=== PATIENT | male | born 1955 | race Caucasian/White ===

== ENCOUNTER 2018-12-11 13:03 | Inpatient (IN) | payer OTHER ==
[~2018-12-11] VITALS: Ht 182.9 cm; Wt 84.5 kg
[~2018-12-11 13:03] MED LIST: AMITRIPTYLINE H50 M2 PO; ASPIR 8181 MG PO; ASPIRIN325 PO; ATORVASTATIN CA80 MG PO; CARVEDILOL25 MG PO; FINASTERIDE5 MG PO; FISH OIL 1,2001 EAC4 PO; GABAPENTIN800 M1 PO; HYDRALAZINE 2525 M1; IMDUR 30 MG TAB30 M1 PO; Isosorbide; LANTUS100 UNIT/M SUBQ; NIACIN 500 MG500 M1 PO; NOVOLOG100 UNIT/M SUBQ; ONE-A-DAY MEN'1 EAC2 PO; TAMSULOSIN HCL0.4 MG PO
[2018-12-11] MEDS ORDERED: AMLODIPINE BESY10 MG PO (14:09)
[2018-12-11] MEDS ORDERED: ASPIRIN325 PO (14:10)
[2018-12-11] MEDS ORDERED: ASPIR 8181 MG PO (14:11)
[2018-12-11] MEDS ORDERED: COLACE100 MG PO (14:17)
[2018-12-11] MEDS ORDERED: SENNA8.6 MG PO (14:18)
[2018-12-11] MEDS ORDERED: REMERON15 MG PO (14:19)
[2018-12-11] MEDS ORDERED: NITROGLYCERIN0.4 MG SUBLING (14:20)
[2018-12-11] MEDS ORDERED: MIRALAX17 GM PO (14:20)
[2018-12-11] MEDS ORDERED: RENAL VITAMIN0.8 MG PO (14:21)
[2018-12-11] MEDS ORDERED: COUMADIN 2 MG TA2 M1 PO ×2 (14:22→14:23)
[2018-12-11] MEDS ORDERED: RESPIMAT INH (14:24)
[2018-12-11 16:00] VITALS: BP 146/68
--- NOTE | 2018-12-11 18:29 | NUR ---
ASSUMMED CARE OF PT AT 1530 ON ARRIVAL TO UNIT FROM [facility], PT ALERT, CONFUSED, ANSWERS SIMPLE QUESTIONS, PT TRANSFERRED WITH SBA GB FROM WHEELCHAIR INTO BED, PT ORIENTED TO ROOM, RETURN DEMONSTRATION DONE OF HOW TO USE CALL LIGHT, AT 1600 PT AMBULATED OUT INTO HALLWAY, HAD PLACED HIS SHOES ON HIMSELF AND GRABBED BELONGING AND WALKING OUT INTO GOLDMAN STATING I WANT TO GO HOME, PT RETURNED TO ROOM AND REORIENTED, AT 1700 DURING HOURLY ROUNDING PT ASLEEP, ATTEMPTED TO WAKE PT BUT PT STATED LEAVE ME ALONE, AT 1730 ATTEMPTED TO WAKE PT TO EAT AND WHEN ASKED IF HE WANTED TO EAT AFTER SEVERAL ATTEMPTS PT SAID NO, PT LAYING WITH EYES CLOSED AND DOES NOT ANSWER ANY FURTHER QUESTIONS, REHAB PHYSICIAN HERE AND AWARE OF SITUATION, DR JACKSON HERE AND ASSESSED PT, PT TO TRANSFER TO TELE, VSS, ALARM SOUNDING AND PT STANDING AT SIDE OF BED AND ATTEMPTING TO WALK INTO BATHROOM, PT PAJAMA PANTS WET, ATTEMPTING TO CHANGE WET CLOTHES BUT PT BELLIGERENT AND DOES NOT WANT CLOTHES CHANGED, WITH HELP OF DID GET CLOTHES CHANGED, REPORT CALLED TO TELE NURSE, PT SENT TO CT SCAN PER BED AND THEN DISCHARGED TO TELE.
== END 2018-12-11 18:52 | disposition short-term general hospital (02) | DRG 65 ==
LOC: M.REH 13:03
PROVIDERS: ADMIT Physical Medicine & Rehabilitation
DX: I61.1 Nontraumatic intracerebral hemorrhage in hemisphere, cortical (principal); N39.0 Urinary tract infection, site not specified; G93.40 Encephalopathy, unspecified; B96.5 Pseudomonas (aeruginosa) (mallei) (pseudomallei) as the cause of diseases classified elsewhere; R41.0 Disorientation, unspecified; N18.9 Chronic kidney disease, unspecified; E11.22 Type 2 diabetes mellitus with diabetic chronic kidney disease; I12.9 Hypertensive chronic kidney disease with stage 1 through stage 4 chronic kidney disease, or unspecified chronic kidney disease; I25.10 Atherosclerotic heart disease of native coronary artery without angina pectoris; I48.91 Unspecified atrial fibrillation; Z79.899 Other long term (current) drug therapy; Z95.1 Presence of aortocoronary bypass graft; Z79.4 Long term (current) use of insulin; Z79.01 Long term (current) use of anticoagulants

== ENCOUNTER 2018-12-11 18:45 | Inpatient (IN) | payer OTHER ==
[~2018-12-11] VITALS: Ht 182.9 cm; Wt 83.7 kg
[~2018-12-11 18:45] MED LIST changes: +AMLODIPINE BESY10 MG PO; +COLACE100 MG PO; +COUMADIN 2 MG TA2 M1 PO; +MIRALAX17 GM PO; +NITROGLYCERIN0.4 MG SUBLING; +REMERON15 MG PO; +RENAL VITAMIN0.8 MG PO; +RESPIMAT INH; +SENNA8.6 MG PO
[2018-12-11 19:10] VITALS: BP 130/52
[2018-12-11 20:10] VITALS: BP 148/60
[2018-12-11 20:33] LABS: ABSOLUTE BASOPHILS 0.1 thou/uL (0.0-0.2); ABSOLUTE EOSINOPHILS 0.4 thou/uL (0.0-0.7); ABSOLUTE LYMPHOCYTES 1.6 thou/uL (0.8-5.3); ABSOLUTE MONOCYTES 0.6 thou/uL (0.0-1.2); ABSOLUTE NEUTROPHILS 5.1 thou/uL (1.6-8.1); BASOPHILS 0.7 %; EOSINOPHILS 4.7 %; HEMATOCRIT 30.5 % (42.0-52.0); HEMOGLOBIN 10.4 gm/dL (14.0-18.0); LYMPHOCYTES 20.6 %; MCHC 34.1 g/dL (28.0-37.0); MCV 90.9 fL (80.0-100.0); MONOCYTES 7.8 %; NUCLEATED RBCS 0 /100WBC; PLATELET COUNT* 184 thou/uL (150-400); POLYS 66.2 %; RBC 3.35 mil/uL (4.50-6.00); RDW-CV 16.2 % (10.5-14.5); WBC 7.7 thou/uL (4.0-11.0)
[2018-12-11 20:40] LABS: INR 2.5; PROTIME 25.3 Seconds (9.20-11.50)
[2018-12-11 20:41] LABS: ANION GAP 9 mmol/L (7-16); BUN 47 mg/dL (7-18); CALCIUM 10.3 mg/dL (8.5-10.1); CHLORIDE 110 mmol/L (98-107); CO2 24 mmol/L (21-32); CREATININE 3.5 mg/dL (0.6-1.3); GLUCOSE 168 mg/dL (70-99); POTASSIUM 4.7 mmol/L (3.5-5.1); SODIUM 143 mmol/L (136-145)
[2018-12-11 20:45] LABS: ALBUMIN 2.8 g/dL (3.4-5.0); ALKALINE PHOSPHATASE 105 U/L (46-116); AMMONIA < 10 umol/L (11-32); MAGNESIUM 2.1 mg/dL (1.8-2.4); SGOT 17 U/L (15-37); SGPT 23 U/L (30-65); TOTAL BILIRUBIN 0.4 mg/dL (<0.1-1.0); TOTAL PROTEIN 6.1 g/dL (6.4-8.2)
[2018-12-11 23:40] LABS: URINE BILIRUBIN NEGATIVE (Negative); URINE BLOOD TRACE (Negative); URINE CLARITY CLEAR; URINE COLOR YELLOW; URINE GLUCOSE-RANDOM TRACE (Negative); URINE KETONES NEGATIVE (Negative); URINE LEUKOCYTES-REFLEX NEGATIVE (Negative); URINE NITRITE-REFLEX NEGATIVE (Negative); URINE PROTEIN 3+ (Negative); URINE SPECIFIC GRAVITY 1.025 (1.005-1.030); URINE UROBILINOGEN 0.2 E.U./dl (0.2-1.0)
[2018-12-11 23:46] VITALS: BP 156/66
[2018-12-11 23:54] LABS: SQUAMOUS 0-3 Few /LPF (0-3); URINE WBC-REFLEX None Seen /HPF (0-5)
[2018-12-11 23:55] LABS: AMORPHOUS URATES Moderate /LPF (None Seen); FINE GRANULAR CASTS 0-3 Few /LPF (None Seen); HYALINE CASTS 0-3 Few /LPF (None Seen); MUCUS 4-6 Moderate strn/LPF (None Seen); URINE RBC 3-10 Few /HPF (0-2)
[2018-12-12 04:00] VITALS: BP 135/56
[2018-12-12 04:41] LABS: ABSOLUTE BASOPHILS 0.1 thou/uL (0.0-0.2); ABSOLUTE EOSINOPHILS 0.4 thou/uL (0.0-0.7); ABSOLUTE LYMPHOCYTES 1.7 thou/uL (0.8-5.3); ABSOLUTE MONOCYTES 0.6 thou/uL (0.0-1.2); BASOPHILS 0.7 %; EOSINOPHILS 5.4 %; HEMOGLOBIN 10.7 gm/dL (14.0-18.0); LYMPHOCYTES 22.1 %; MCH 30.2 pg (26.0-34.0); MCHC 33.3 g/dL (28.0-37.0); MCV 90.6 fL (80.0-100.0); MONOCYTES 7.9 %; MPV 7.8 fl. (7.2-11.1); NUCLEATED RBCS 0 /100WBC; PLATELET COUNT* 182 thou/uL (150-400); POLYS 63.9 %; RBC 3.54 mil/uL (4.50-6.00); RDW-CV 16.3 % (10.5-14.5); WBC 7.8 thou/uL (4.0-11.0)
[2018-12-12 05:09] LABS: CALCIUM 10.3 mg/dL (8.5-10.1); CREATININE 3.4 mg/dL (0.6-1.3); PHOSPHORUS* 3.7 mg/dL (2.5-4.9); POTASSIUM 4.4 mmol/L (3.5-5.1)
--- NOTE | 2018-12-12 05:46 | NUR ---
PT CARE ASSUMED AT 1930. SAT MAINTAINED IN RA. PT IS CONFUSED AND IMPULSIVE. TRIES TO GET OUT OF THE BED, EDUCATED ON USING THE CALL LIGHT NEEDS REINFORCEMENT. CALL LIGHT WITHIN REACH AND BED IN LOW POSITION. DENIES PAIN AND SOB. HOURLY ROUNDING DONE FOR PT SAFETY.
[2018-12-12 07:59] VITALS: BP 162/77
--- NOTE | 2018-12-12 08:45 | NUR ---
RECIEVED REPORT FROM JOSÉ ANTONIO AND ASSUMED CARE OF PT @ 8656.PT IS ALERT TO SELF AND CONFUSED.VSS, TRACING SR ON THE MONITOR.IV PATENT AND SALINE LOCKED.PT IS CALM AND COOPERATIVE THIS MORNING WITH NO C/O PAIN.PT LEFT RESTING IN BED WITH CALL LIGHT AND FALL PRECAUTIONS IN PLACE.WILL CONTINUE TO MONITOR.
[2018-12-12 11:30] VITALS: BP 142/70
[2018-12-12 12:31] LABS: INR 1.9; PROTIME 19.9 Seconds (9.20-11.50)
--- NOTE | 2018-12-12 13:45 | NUR ---
Pt unable to be aroused, will attempt to assess later
[2018-12-12 15:56] VITALS: BP 133/59
--- NOTE | 2018-12-12 17:42 | NUR ---
VSS.PT WAS ALERT THIS MORNING WITH AT BEDSIDE.PT SAT IN CHAIR AND ATE BREAKFAST.PT SHOWERED IN BIG SHOWER WITH .THIS AFTERNOON PT WAS MORE LETHARGIC AND WOULD NOT RESPOND TO NURSE FOR MEDICATIONS.PT SAT AT EDGE OF BED WITH PHYSICAL THERAPY BUT WOULD NOT COOPERATE TO STAND OR OPEN EYES. SOON RETURNED THE PT WOKE UP AND GOT IN CHAIR AND ATE DINNER.CARDIAC MONITORING IN PLACE WITH NO CHANGES.NO C/O PAIN.PT RIPPED OUT IV THIS AM AND CURRENTLY HAS NO IV ACCESS.DR JACKSON IS AWARE.RUST COMPLETED THIS AM WITH A SCORE OF 3.CXR COMPLETED TODAY.PT AND INFORMED OF PLAN OF CARE AND COMMUNICATES UNDERSTANDING.PT AMBULATED IN ROOM WITH AND WALKER.HOURLY ROUNDING COMPLETED FOR PT SAFETY.CALL LIGHT AND FALL PRECAUTIONS IN PLACE.WILL CONTINUE TO MONITOR FOR DURATION OF SHIFT.
[2018-12-12 20:10] VITALS: BP 126/50
[2018-12-13] VITALS (7 sets, daily range): BP systolic 124–137; BP diastolic 45–63
[2018-12-13 04:42] LABS: ABSOLUTE EOSINOPHILS 0.3 thou/uL (0.0-0.7); ABSOLUTE LYMPHOCYTES 1.6 thou/uL (0.8-5.3); ABSOLUTE MONOCYTES 0.6 thou/uL (0.0-1.2); BASOPHILS 0.6 %; EOSINOPHILS 4.1 %; HEMATOCRIT 31.9 % (42.0-52.0); HEMOGLOBIN 10.7 gm/dL (14.0-18.0); LYMPHOCYTES 21.2 %; MCH 30.8 pg (26.0-34.0); MCHC 33.6 g/dL (28.0-37.0); MCV 91.6 fL (80.0-100.0); MONOCYTES 7.6 %; NUCLEATED RBCS 0 /100WBC; PLATELET COUNT* 185 thou/uL (150-400); POLYS 66.5 %; RBC 3.48 mil/uL (4.50-6.00); RDW-CV 16.6 % (10.5-14.5); WBC 7.5 thou/uL (4.0-11.0)
[2018-12-13 04:50] LABS: INR 1.7; PROTIME 16.9 Seconds (9.20-11.50)
[2018-12-13 04:55] LABS: CALCIUM 10.2 mg/dL (8.5-10.1); CREATININE 3.7 mg/dL (0.6-1.3); POTASSIUM 4.9 mmol/L (3.5-5.1)
--- NOTE | 2018-12-13 08:17 | NUR ---
PT CARE ASSUMED AT 1930. SAT MAINTAINED IN RA. CALL LIGHT WITHIN REACH AND BED IN LOW POSITION. PT IS IMPULSIVE, TRIES TO PULL HIS CATHETER OUT, DR BANKS, MEDICATION GIVEN PER EMAR. HOURLY ROUNDING DONE FOR PT SAFETY.
--- NOTE | 2018-12-13 10:00 | NUR ---
RECEIVED REPORT AND ASSUMED CARE OF PT AT 0730.PT IS ALERT AND ORIENTED TO SELF ONLY.LOOKS SLEEPY.SITTING ON THE RECLINER.TRACING SB ON THE MONITOR.UP WITH ASSIST WITH WALKER.NO COMPLAINTS OF PAIN .REDNESS ON THE BOTTOM AREA.CREAM APPLIED AND PT ENCOURAGED TO SLEEP ON LATERAL POSITION.ASSISTANCE PROVIDED ON FEEDING.NIH SCALE ASSESED.CALL LIGHT AND FALL PRECAUTIONS IN PLACE.WILL CONTINUE TO MONITOR.
[2018-12-13 11:57] LABS: ABSOLUTE BASOPHILS 0.1 thou/uL (0.0-0.2); ABSOLUTE EOSINOPHILS 0.3 thou/uL (0.0-0.7); ABSOLUTE LYMPHOCYTES 1.4 thou/uL (0.8-5.3); ABSOLUTE MONOCYTES 0.6 thou/uL (0.0-1.2); BASOPHILS 0.7 %; EOSINOPHILS 3.2 %; HEMOGLOBIN 10.6 gm/dL (14.0-18.0); MCH 30.6 pg (26.0-34.0); MCHC 33.3 g/dL (28.0-37.0); MCV 91.9 fL (80.0-100.0); MONOCYTES 6.7 %; MPV 7.7 fl. (7.2-11.1); NUCLEATED RBCS 0 /100WBC; PLATELET COUNT* 180 thou/uL (150-400); POLYS 72.4 %; RBC 3.48 mil/uL (4.50-6.00); RDW-CV 16.6 % (10.5-14.5); WBC 8.3 thou/uL (4.0-11.0)
[2018-12-13 12:05] LABS: CALCIUM 9.9 mg/dL (8.5-10.1); CREATININE 3.9 mg/dL (0.6-1.3); POTASSIUM 4.9 mmol/L (3.5-5.1)
--- NOTE | 2018-12-13 17:02 | NUR ---
VSS.PT IS A/OX1-2.TRACING SR ON THE MONITOR.UP WITH ASSIST.ON RA.IV PATENT AND SALINE LOCKED.PT IS DROWSY AND SLEEPY ALL DAY.NO COMPLAINTS OF PAIN .PT SEEN BY OT AND PT ,MOBILIZED TO RECLINER AND BED FREQUENTLY.REDNESS ON THE BOTTOM AREA,PT KEPT ON THE SIDE LATERAL POSITION AND BARRIER CREAM APPLIED.PT ENCOURAGED TO EAT.CALL LIGHT AND FALL PRECAUTIONS IN PLACE.WILL CONTINUE TO MONITOR
[2018-12-14 04:00] VITALS: BP 109/48
[2018-12-14 05:01] LABS: INR 1.6; PROTIME 16.7 Seconds (9.20-11.50)
--- NOTE | 2018-12-14 06:08 | NUR ---
PT CARE ASSUMED AT 1930. SAT MAINTAINED IN RA. PT IS CONFUSED. CALL LIGHT WITHIN REACH AND BED IN LOW POSITION. DENIES PAIN AND SOB. HOURLY ROUNDING DONE FOR PT SAFETY.
[2018-12-14 08:28] VITALS: BP 134/59
--- NOTE | 2018-12-14 10:30 | NUR ---
RECEIVED REPORT AND ASSUMED CARE OF PT AT 0735.PT IS A/OX1-2.LOOKS MUCH BETTER THAN YESTERDAY.COMMUNICATES LITTLE BIT.CONFUSED .TRACING SR PVCS ON THE MONITOR.UP WITH ASSIST WITH WALKER.MOBILIZED TO CHAIR AND HALLWAY.BARRIER CREAM APPLIED ON THE BOTTOM AREA.PT SLEPT GOOD LAST NIGHT .HE IS AWAKE THIS MORNING.NO COMPLAINTS OF PAIN.CALL LIGHT AND FALL PRECAUTIONS IN PLACE.WILL CONTINUE TO MONITOR.
[2018-12-14 12:28] VITALS: BP 127/50
[2018-12-14 15:36] VITALS: BP 145/58
--- NOTE | 2018-12-14 17:59 | NUR ---
VSS.PT IS ALERT BUT ORIENTED TO SELF.CONFUSED.TRACING SB-SR ON THE MONITOR.MCF[place]ANE PATENT AND SECURED.PT MOBILIZED TO CHAIR AND IN THE HALLWAY.UP WITH ASSIST.PT REMAINS SLEEPY THIS AFTERNOON FOR MOST OF THE TIME.POSSIBLE DISCHARGE TOMORROW PER DOCTOR.CALL LIGHT ND FALL PRECAUTIONS IN PLACE.WILL CONTINUE TO MONITOR.
[2018-12-14 19:30] VITALS: BP 127/62
[2018-12-15] VITALS: BP 139/57
--- NOTE | 2018-12-15 03:58 | NUR ---
RECIEVED REPORT AND ASSUMED CARE AT 1900. PULVERIZER IN PLACE. VITAL SIGNS STABLE. PT IS UP WITH ASSIST X 1. PT DENIED ANY PAIN AT THIS TIME. ASSESSMENT COMPLETED. BED LOCKED, ALARM ON AND CALL LIGHT WITHIN REACH. FALL PRECAUTIONS IN PLACE. HOURLY ROUNDING DONE AND ALL NEEDS MET. NURSING WILL CONTINUE TO MONITOR.
[2018-12-15 04:00] VITALS: BP 113/41
[2018-12-15 05:03] LABS: HEMATOCRIT 28.2 % (42.0-52.0); HEMOGLOBIN 9.6 gm/dL (14.0-18.0); MCH 30.9 pg (26.0-34.0); MCHC 33.9 g/dL (28.0-37.0); MCV 91.1 fL (80.0-100.0); MPV 8.1 fl. (7.2-11.1); RBC 3.09 mil/uL (4.50-6.00); RDW-CV 16.5 % (10.5-14.5); WBC 7.6 thou/uL (4.0-11.0)
[2018-12-15 05:17] LABS: INR 1.6
[2018-12-15 05:34] LABS: CALCIUM 9.8 mg/dL (8.5-10.1); CREATININE 3.8 mg/dL (0.6-1.3); MAGNESIUM 1.9 mg/dL (1.8-2.4); POTASSIUM 4.4 mmol/L (3.5-5.1)
--- NOTE | 2018-12-15 10:42 | NUR ---
ASSUMED PT CARE AT 0730, FULL ASSESMENT DONE CHARTED. PT A/O X3, FORGETFUL, DOSE STATE HE IS CONFUSED. PT THINKS HE IS [place], BUT STATES HE IS IN [place], ABLE TO ANSER ALL OTHER ORIENTATION QUESTIONS APPROPRIALTY. PT HAS MCF[place]ANE DEPENDENT TO DRAINAGE. PT SITTING IN CHAIR, ALARM ON. FALL PRECAUTIONS IN PLACE. RA, VSS, SB/1ST AVB ON THE MONITOR. WILL CONTINUE TO MONITOR.
--- NOTE | 2018-12-15 11:02 | NUR ---
Pt is A&O. Pt was on [facility] acute rehab unit, prior to admitting to the hospital, Pt hopes to return to acute rehab at [facility]. Normally Pt resides at home with his . Pt has a walker and cane that he can use for mobility. No hx of HH. Hx of skilled at [facility]. CM left message for rehabilitation tech to determine if they can accept Pt back at [facility]. Following.
[2018-12-15 11:57] VITALS: BP 134/58
[2018-12-15 15:50] VITALS: BP 134/58
[2018-12-15] MEDS ORDERED: ZOLOFT 50 MG TA50 M1 PO (15:58)
[2018-12-15] MEDS ORDERED: MELATONIN5 M1 PO (15:59)
[2018-12-15] MEDS ORDERED: PROVIGIL 200 M200 MG PO (16:00)
--- NOTE | 2018-12-15 16:57 | NUR ---
RECIEVED CONFIRMATION FOR PT TO DC TO REHAB. DISCHARGE ORDERS RECIEVED. PTS INFOMED OF THE CHANGE. REVIEWED MED CHANGES WITH , SHE VERBALIZED UNDERSTANDING. PT LEFT UNIT AT APPROX 1655
== END 2018-12-15 16:55 | DRG 64 ==
LOC: M.2W 18:45
PROVIDERS: Internal Medicine; ADMIT Family Medicine
DX: I63.89 Other cerebral infarction (principal); G93.41 Metabolic encephalopathy; I50.43 Acute on chronic combined systolic (congestive) and diastolic (congestive) heart failure; I13.0 Hypertensive heart and chronic kidney disease with heart failure and stage 1 through stage 4 chronic kidney disease, or unspecified chronic kidney disease; N18.4 Chronic kidney disease, stage 4 (severe); N25.81 Secondary hyperparathyroidism of renal origin; I25.10 Atherosclerotic heart disease of native coronary artery without angina pectoris; E11.22 Type 2 diabetes mellitus with diabetic chronic kidney disease; E11.40 Type 2 diabetes mellitus with diabetic neuropathy, unspecified; E11.51 Type 2 diabetes mellitus with diabetic peripheral angiopathy without gangrene; E78.5 Hyperlipidemia, unspecified; I48.91 Unspecified atrial fibrillation; N40.1 Benign prostatic hyperplasia with lower urinary tract symptoms; R33.8 Other retention of urine; H90.3 Sensorineural hearing loss, bilateral; Z95.1 Presence of aortocoronary bypass graft; Z79.01 Long term (current) use of anticoagulants; Z79.4 Long term (current) use of insulin; Z79.82 Long term (current) use of aspirin; Z79.899 Other long term (current) drug therapy

== ENCOUNTER 2018-12-15 14:29 | Inpatient (IN) | payer OTHER ==
[~2018-12-15] VITALS: Ht 182.9 cm; Wt 86.6 kg
--- NOTE | ~2018-12-15 | CON ---
[address] [address] CONSULTATION Name: JACKELYN GRACIA SR Room: [address] IN ..#: [id number] Admission: 12/15/18 Attend Phys: Jimmy Javed MD Discharge: Date of : 55 Report #: [id number] THIS REPORT FOR: //name// CC: FAM unknown Jimmy Javed DATE OF SERVICE: 12/28/2018 NEPHROLOGY CONSULTATION REASON FOR NEPHROLOGY CONSULTATION: Elevated creatinine. REASON FOR ADMISSION: Further rehabilitation. HISTORY OF PRESENT ILLNESS: This is a 63-year-old male with past medical history of chronic kidney disease, stage 4. 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 The patient suffered subacute CVA on 12/11/2018 and was transferred initially to acute inpatient rehabilitation after that, but he developed altered mental status and acute kidney injury and azotemia due to urinary retention and ended up needing a Powell and then was subsequently transferred to rehab again on 12/15/2018 and urology evaluated him here. He was given a voiding trial on 12/24/2018, which was successful. His creatinine was 4.2 on admission here to rehab on 12/16/2018 and it has slowly trended down to 3.0 and it has stabilized around 3-3.2. He has no complaints. His blood pressure is controlled. He says that he does not take any NSAIDs at home. He is following with his primary care only, even for his chronic kidney disease stage 4. He is maintained on Flomax and finasteride. ALLERGIES: No known drug allergies. REVIEW OF SYSTEMS: As mentioned in history of present illness, otherwise negative. PAST MEDICAL AND SURGICAL HISTORY: Chronic kidney disease stage 4, diabetes, hypertension, CVA, CAD, CABG, atrial fibrillation, peripheral vascular disease, BPH. HOME MEDICATIONS: Which include mirtazapine, tamsulosin, amlodipine, sennosides, nitroglycerin, polyethylene glycol, folic acid, warfarin, sertraline, melatonin, potassium, carvedilol, atorvastatin, finasteride, insulin glargine, Sensipar, aspirin, docusate. FAMILY HISTORY: No history of any [place] [address] CONSULTATION Name: BASILJACKELYN SR Room: [address]#: [id number] Admission: 12/15/18 Attend Phys: Jimmy Javed MD Discharge: Date of : 55 Report #: [id number] SOCIAL HISTORY: He does not smoke or take alcohol or use illicit drugs. He lives at home with his in general. PHYSICAL EXAMINATION: VITAL SIGNS: Blood pressure is 140/59, respiratory rate is 18, pulse rate is 61, temperature is 36.5 and pulse ox on room air is 95%. GENERAL: He is sitting up in chair. He is awake, alert, oriented x 3. HEAD AND EYES: Atraumatic, normocephalic. Eyes, normal conjunctivae. EARS, NOSE AND THROAT: Mucous membranes are moist. NECK: There is no JVD. CHEST: Bilaterally clear to auscultation. No crackles or wheezing. CARDIOVASCULAR: S1, S2 normal. No murmurs. ABDOMEN: Soft, nondistended, nontender. Bowel sounds are present. EXTREMITIES: Currently, there is only trace edema in bilateral lower extremities. Otherwise, symmetrical. NEUROLOGIC: Gross neurological function is intact. PSYCHIATRIC: Mood and affect seem to be normal. LABORATORY DATA: Hemoglobin is 9.2. Creatinine is 3.0, potassium was 4.3. Other labs were reviewed. IMAGING STUDIES: Renal ultrasound was reviewed, did not show any acute abnormalities on 12/23/2018. ASSESSMENT: 1. The patient had acute kidney injury, now resolved. He has history of chronic kidney disease, stage 4 with baseline creatinine 3.4-3.7, but creatinine currently lower than his baseline. Chronic kidney disease is due to diabetes, hypertension and urinary retention because of his benign prostatic hypertrophy. 2. Diabetes, type 2. Internal Medicine is managing. 3. Benign prostatic hypertrophy. He had a Powell, but now, it has been successfully removed and urology followed him while he was here. 4. Hypertension. Blood pressure is controlled. 5. Recent subacute cerebrovascular accident. The patient is in rehab for that. It was in left middle cerebral artery distribution. 6. Anemia, rule out iron deficiency. PLAN: 1. Make sure he is on renal diet, we will check iron parameters. 2. Creatinine seems to have stabilized between 3 and 3.2, which is better than his recent labs. 3. Encouraged the patient to follow up with Nephrology as an outpatient. 4. Try to maintain his I's and O's. Discussed with the patient. [address] [address] CONSULTATION Name: JACKELYN GRACIA Room: [address] IN [facility]#: [id number] Admission: 12/15/18 Attend Phys: Jimmy Javed MD Discharge: Date of : 55 Report #: [id number] Thank you for this consultation. We will follow along with you. By: 0920 Randolph Valera MD /nt
[2018-12-15] MEDS ORDERED: ZOLOFT 50 MG TA50 M1 PO (15:58)
[2018-12-15] MEDS ORDERED: MELATONIN5 M1 PO (15:59)
[2018-12-15] MEDS ORDERED: PROVIGIL 200 M200 MG PO (16:00)
[2018-12-15 17:00] VITALS: BP 129/59
[2018-12-15 20:00] VITALS: BP 129/64; BP 141/55
[2018-12-15 21:19] LABS: URINE BILIRUBIN NEGATIVE (Negative); URINE BLOOD 2+ (Negative); URINE CLARITY CLEAR; URINE COLOR YELLOW; URINE GLUCOSE-RANDOM 3+ (Negative); URINE KETONES NEGATIVE (Negative); URINE LEUKOCYTES-REFLEX NEGATIVE (Negative); URINE NITRITE-REFLEX NEGATIVE (Negative); URINE PROTEIN 2+ (Negative); URINE SPECIFIC GRAVITY 1.015 (1.005-1.030); URINE UROBILINOGEN 0.2 E.U./dl (0.2-1.0)
[2018-12-15 21:29] LABS: CRYSTALS None Seen /LPF (None Seen); HYALINE CASTS 0-3 Few /LPF (None Seen); MUCUS None Seen strn/LPF (None Seen); SQUAMOUS NONE SEEN /LPF (0-3); URINE WBC-REFLEX 0-5 Rare /HPF (0-5)
[2018-12-15 21:30] LABS: BACTERIA-REFLEX 1-9 Few /HPF (None Seen)
[2018-12-16 04:06] LABS: HEMATOCRIT 28.2 % (42.0-52.0); HEMOGLOBIN 9.6 gm/dL (14.0-18.0); MCHC 34.1 g/dL (28.0-37.0); MCV 91.1 fL (80.0-100.0); MPV 8.2 fl. (7.2-11.1); RBC 3.1 mil/uL (4.50-6.00); RDW-CV 16.5 % (10.5-14.5); WBC 6.1 thou/uL (4.0-11.0)
[2018-12-16 04:29] LABS: CALCIUM 9.2 mg/dL (8.5-10.1); CREATININE 4.2 mg/dL (0.6-1.3); POTASSIUM 4.8 mmol/L (3.5-5.1)
[2018-12-16 08:00] VITALS: BP 123/55
[2018-12-16 20:10] VITALS: BP 134/61
[2018-12-17 08:02] VITALS: BP 136/62
[2018-12-17 20:16] VITALS: BP 135/60
[2018-12-18 08:00] VITALS: BP 128/59
[2018-12-18 20:05] VITALS: BP 134/48
[2018-12-19 05:10] LABS: INR 1.4; PROTIME 14.2 Seconds (9.20-11.50)
[2018-12-19 09:07] VITALS: BP 137/64
[2018-12-19 20:08] VITALS: BP 140/31
[2018-12-20 05:04] LABS: HEMATOCRIT 27.8 % (42.0-52.0); HEMOGLOBIN 9.6 gm/dL (14.0-18.0); MCH 31.4 pg (26.0-34.0); MCHC 34.5 g/dL (28.0-37.0); MCV 91.2 fL (80.0-100.0); MPV 8.1 fl. (7.2-11.1); RBC 3.05 mil/uL (4.50-6.00); RDW-CV 16.1 % (10.5-14.5); WBC 6.3 thou/uL (4.0-11.0)
[2018-12-20 05:09] LABS: CALCIUM 9.4 mg/dL (8.5-10.1); CREATININE 3.5 mg/dL (0.6-1.3); POTASSIUM 4.7 mmol/L (3.5-5.1)
[2018-12-20 07:52] VITALS: BP 132/64
[2018-12-20 20:02] VITALS: BP 125/50
[2018-12-21 08:00] VITALS: BP 141/61
[2018-12-21 17:06] LABS: INR 1.1; PROTIME 11.5 Seconds (9.20-11.50)
[2018-12-21 19:57] VITALS: BP 139/79
[2018-12-22 19:30] VITALS: BP 145/45
[2018-12-23 04:32] LABS: HEMATOCRIT 28.3 % (42.0-52.0); HEMOGLOBIN 9.7 gm/dL (14.0-18.0); MCH 31.5 pg (26.0-34.0); MCHC 34.5 g/dL (28.0-37.0); MCV 91.4 fL (80.0-100.0); MPV 7.6 fl. (7.2-11.1); RBC 3.09 mil/uL (4.50-6.00); RDW-CV 16.4 % (10.5-14.5); WBC 6.7 thou/uL (4.0-11.0)
[2018-12-23 04:50] LABS: CALCIUM 10.1 mg/dL (8.5-10.1); CREATININE 3.5 mg/dL (0.6-1.3); MAGNESIUM 1.9 mg/dL (1.8-2.4); POTASSIUM 4.3 mmol/L (3.5-5.1)
[2018-12-23 07:00] VITALS: BP 144/60
[2018-12-23 19:37] VITALS: BP 142/61
[2018-12-24 07:00] VITALS: BP 154/56
[2018-12-24 09:14] LABS: INR 1.3; PROTIME 13.6 Seconds (9.20-11.50)
[2018-12-24 20:00] VITALS: BP 142/63
[2018-12-24 21:25] LABS: INR 1.3; PROTIME 13.5 Seconds (9.20-11.50)
[2018-12-25 04:00] LABS: HEMATOCRIT 28.6 % (42.0-52.0); HEMOGLOBIN 9.5 gm/dL (14.0-18.0); MCH 30.5 pg (26.0-34.0); MCHC 33.1 g/dL (28.0-37.0); MCV 92.1 fL (80.0-100.0); MPV 7.5 fl. (7.2-11.1); RBC 3.1 mil/uL (4.50-6.00); RDW-CV 16.3 % (10.5-14.5); WBC 6.2 thou/uL (4.0-11.0)
[2018-12-25 04:18] LABS: ALBUMIN 2.4 g/dL (3.4-5.0); CALCIUM 9.7 mg/dL (8.5-10.1); PHOSPHORUS* 3.8 mg/dL (2.5-4.9); POTASSIUM 4.4 mmol/L (3.5-5.1)
[2018-12-25 08:00] VITALS: BP 134/58
[2018-12-25 08:53] VITALS: BP 134/58
[2018-12-25 15:42] LABS: INR 1.5; PROTIME 15.1 Seconds (9.20-11.50)
[2018-12-25 20:04] VITALS: BP 155/63
[2018-12-26 03:33] LABS: HEMATOCRIT 28.9 % (42.0-52.0); HEMOGLOBIN 9.5 gm/dL (14.0-18.0); MCH 30.3 pg (26.0-34.0); MCHC 32.8 g/dL (28.0-37.0); MCV 92.4 fL (80.0-100.0); MPV 7.5 fl. (7.2-11.1); RBC 3.13 mil/uL (4.50-6.00); RDW-CV 16.8 % (10.5-14.5); WBC 5.8 thou/uL (4.0-11.0)
[2018-12-26 03:49] LABS: ALBUMIN 2.4 g/dL (3.4-5.0); CREATININE 3.2 mg/dL (0.6-1.3); PHOSPHORUS* 3.8 mg/dL (2.5-4.9); POTASSIUM 4.4 mmol/L (3.5-5.1)
[2018-12-26 03:51] LABS: INR 1.7; PROTIME 16.9 Seconds (9.20-11.50)
[2018-12-26 08:10] VITALS: BP 149/63
[2018-12-26 08:58] VITALS: BP 149/63
[2018-12-26 20:00] VITALS: BP 148/59
[2018-12-27 05:36] LABS: ALBUMIN 2.5 g/dL (3.4-5.0); CALCIUM 9.6 mg/dL (8.5-10.1); CREATININE 3.2 mg/dL (0.6-1.3); INR 1.9; PHOSPHORUS* 3.4 mg/dL (2.5-4.9); POTASSIUM 4.4 mmol/L (3.5-5.1); PROTIME 19.6 Seconds (9.20-11.50)
[2018-12-27 05:41] LABS: HEMATOCRIT 27.2 % (42.0-52.0); HEMOGLOBIN 9.1 gm/dL (14.0-18.0); MCH 30.7 pg (26.0-34.0); MCHC 33.3 g/dL (28.0-37.0); MCV 92.2 fL (80.0-100.0); MPV 7.6 fl. (7.2-11.1); RBC 2.95 mil/uL (4.50-6.00); RDW-CV 16.6 % (10.5-14.5); WBC 5.7 thou/uL (4.0-11.0)
[2018-12-27 07:00] VITALS: BP 153/66
[2018-12-27 20:00] VITALS: BP 103/64
[2018-12-28 05:02] LABS: HEMATOCRIT 27.9 % (42.0-52.0); HEMOGLOBIN 9.2 gm/dL (14.0-18.0); MCH 30.4 pg (26.0-34.0); MCV 91.9 fL (80.0-100.0); MPV 7.2 fl. (7.2-11.1); RBC 3.04 mil/uL (4.50-6.00); RDW-CV 16.8 % (10.5-14.5); WBC 6.5 thou/uL (4.0-11.0)
[2018-12-28 05:22] LABS: INR 2.1; PROTIME 21.4 Seconds (9.20-11.50)
[2018-12-28 05:48] LABS: ALBUMIN 2.4 g/dL (3.4-5.0); POTASSIUM 4.3 mmol/L (3.5-5.1); TOTAL BILIRUBIN 0.2 mg/dL (<0.1-1.0); TOTAL PROTEIN 5.4 g/dL (6.4-8.2)
[2018-12-28 07:46] VITALS: BP 140/59
[2018-12-28 20:00] VITALS: BP 145/59
[2018-12-29 04:16] LABS: HEMATOCRIT 28.7 % (42.0-52.0); HEMOGLOBIN 9.6 gm/dL (14.0-18.0); MCH 30.7 pg (26.0-34.0); MCHC 33.5 g/dL (28.0-37.0); MCV 91.6 fL (80.0-100.0); MPV 7.4 fl. (7.2-11.1); RBC 3.14 mil/uL (4.50-6.00); RDW-CV 16.4 % (10.5-14.5); WBC 5.5 thou/uL (4.0-11.0)
[2018-12-29 04:26] LABS: INR 2.1; PROTIME 21.1 Seconds (9.20-11.50)
[2018-12-29 04:30] LABS: CREATININE 2.8 mg/dL (0.6-1.3); POTASSIUM 4.3 mmol/L (3.5-5.1)
[2018-12-29 04:35] LABS: ALBUMIN 2.4 g/dL (3.4-5.0); CREATININE 2.8 mg/dL (0.6-1.3); PHOSPHORUS* 3.3 mg/dL (2.5-4.9); POTASSIUM 4.3 mmol/L (3.5-5.1)
[2018-12-29 05:12] LABS: % SATURATION 25 % (20-39); IRON 45 ug/dL (50-175)
[2018-12-29 07:51] VITALS: BP 138/64
[2018-12-29 07:56] VITALS: BP 139/64
[2018-12-29 20:00] VITALS: BP 144/53
[2018-12-30 07:58] VITALS: BP 151/61
[2018-12-30 19:53] VITALS: BP 141/64
[2018-12-31 05:29] LABS: ALBUMIN 2.4 g/dL (3.4-5.0); ANION GAP 6 mmol/L (7-16); BUN 52 mg/dL (7-18); CALCIUM 9.8 mg/dL (8.5-10.1); CHLORIDE 110 mmol/L (98-107); CO2 25 mmol/L (21-32); CREATININE 3.1 mg/dL (0.6-1.3); GLUCOSE 201 mg/dL (70-99); PHOSPHORUS* 3.1 mg/dL (2.5-4.9); POTASSIUM 4.9 mmol/L (3.5-5.1); SODIUM 141 mmol/L (136-145); TROPONIN-I LEVEL <0.06 ng/mL (<0.06)
[2018-12-31 05:31] LABS: PROTIME 20.9 Seconds (9.20-11.50)
[2018-12-31 10:37] VITALS: BP 134/62
[2018-12-31 13:49] VITALS: BP 134/62
[2018-12-31 14:15] VITALS: BP 134/62
[2018-12-31 14:19] VITALS: BP 134/62
== END 2018-12-31 15:22 | disposition home health service (06) | DRG 70 ==
LOC: M.REH 14:29
PROVIDERS: Family Medicine; Internal Medicine; ADMIT Physical Medicine & Rehabilitation
DX: G93.41 Metabolic encephalopathy (principal); I63.9 Cerebral infarction, unspecified; I50.43 Acute on chronic combined systolic (congestive) and diastolic (congestive) heart failure; N18.4 Chronic kidney disease, stage 4 (severe); N25.81 Secondary hyperparathyroidism of renal origin; I13.2 Hypertensive heart and chronic kidney disease with heart failure and with stage 5 chronic kidney disease, or end stage renal disease; N17.9 Acute kidney failure, unspecified; E11.22 Type 2 diabetes mellitus with diabetic chronic kidney disease; I25.10 Atherosclerotic heart disease of native coronary artery without angina pectoris; E11.51 Type 2 diabetes mellitus with diabetic peripheral angiopathy without gangrene; E78.5 Hyperlipidemia, unspecified; N40.1 Benign prostatic hyperplasia with lower urinary tract symptoms; R33.8 Other retention of urine; D64.9 Anemia, unspecified; E11.40 Type 2 diabetes mellitus with diabetic neuropathy, unspecified; I48.2 Chronic atrial fibrillation; H90.3 Sensorineural hearing loss, bilateral; R79.1 Abnormal coagulation profile; Z79.01 Long term (current) use of anticoagulants; Z86.73 Personal history of transient ischemic attack (TIA), and cerebral infarction without residual deficits; Z95.1 Presence of aortocoronary bypass graft; Z79.899 Other long term (current) drug therapy; Z79.4 Long term (current) use of insulin; Z79.82 Long term (current) use of aspirin; Z87.440 Personal history of urinary (tract) infections